=== PATIENT | female | born 1935 | race Caucasian/White ===

== ENCOUNTER 2022-07-22 10:05 | Emergency (ER) | payer OTHER, MEDICARE ==
[2022-07-22] MEDS ORDERED: DIPHTH,PERTUSS(ACELL),TET 0.5 ML DISP.SYRIN IM ONE ×2 (10:37→10:42)
[2022-07-22] MEDS ORDERED: TORSEMIDE 10 MG TABLET PO ONE (10:38)
[2022-07-22 11:19] VITALS: BP 123/66; PULSE 75; RESP 18; TEMP 98.2; BMI 28.7
== END 2022-07-22 13:05 | disposition home or self-care (01) ==
LOC: FER 10:05
PROC: 3E0234Z Introduction of Serum, Toxoid and Vaccine into Muscle, Percutaneous Approach (ICD-10-PCS; principal; 2022-07-22)
DX: S09.90XA Unspecified injury of head, initial encounter (principal); W22.03XA Walked into furniture, initial encounter
CPT/HCPCS: 70450-TC; 90471; 90715; 99284-25